=== PATIENT | female | born 2000 | race Caucasian/White ===

== ENCOUNTER 2021-07-08 10:02 | Outpatient (CLI) | payer BC, SELFPAY ==
[2021-07-08 10:45] LABS: Beta HCG Quantitative < 2.39 mIU/ML
== END 2021-07-08 10:03 | disposition home or self-care (01) ==
LOC: ANHLAB 10:05
PROVIDERS: Visit Provider Obstetrics & Gynecology
DX: Z01.419 Encounter for gynecological examination (general) (routine) without abnormal findings (principal)
CPT/HCPCS: 36415; 84702

== ENCOUNTER → 2022-02-01 09:16 | Outpatient (CLI) | payer BC, SELFPAY ==
--- NOTE | ~2022-02-01 | XR_ITS ---
XR abdomen/kub 1V DATE: 02/01/2022 09:32 INDICATION: Abdominal and bilateral flank pain for 3 days. Dysuria. TECHNIQUE: 2 AP views COMPARISON: None FINDINGS: Heart size is normal. Lower lung zones are clear. The psoas shadows are intact. No visceromegaly is detected. A few calcified pelvic phleboliths are no torito. No abnormal calcification is noted. There is a prominent amount of fecal material in the rectum and colon but no evidence of bowel obstru ction. Included skeletal structures are unremarkable. IMPRESSION: Prominent amount of fecal material in rectum and colon Reviewed, dictated and finalized at [facility]. Reviewed, dictated and finalized at [facility]. [facility]
== END ==
PROVIDERS: PCP Family Medicine; Visit Provider Nurse Practitioner Gerontology
DX: R10.9 Unspecified abdominal pain (principal); N39.0 Urinary tract infection, site not specified
CPT/HCPCS: 74018